=== PATIENT | female | born 1995 | race Caucasian/White ===

== ENCOUNTER 2017-08-12 19:22 | Inpatient (IN) | payer MEDICAID ==
[2017-08-12 23:34] VITALS: BMI 42.9
[2017-08-12] MEDS ORDERED: Nalbuphine 20 mg/ml Inj (1 ml) IVP PRN (23:36)
[2017-08-13 00:51] LABS: BASO % 0.3 % (0.0-2.0); EOS # 0.1 K/uL (0.0-0.7); EOS % 0.4 % (0.0-4.0); HEMATOCRIT 35.8 % (34.0-47.0); LYMPH # 1.8 K/uL (1.0-4.3); LYMPH % 13.3 % (20.0-40.0); MEAN CELL VOLUME 78.4 fl (81.0-99.0); MEAN CORPUSCULAR HEMOGLOBIN 25.7 pg (27.0-31.0); MEAN CORPUSCULAR HGB CONC 32.7 g/dL (33.0-37.0); MEAN PLATELET VOLUME 8.4 fl (7.2-11.7); MONO # 0.6 K/uL (0.0-0.8); MONO % 4.6 % (0.0-10.0); NEUT # 10.8 K/uL (1.8-7.0); NEUT % 81.4 % (50.0-75.0); NRBC % 0.1 % (0.0-0.0); RED CELL DISTRIBUTION WIDTH 14.5 % (11.5-14.5); WHITE BLOOD COUNT 13.2 K/uL (4.8-10.8)
[2017-08-13 01:16] VITALS: O2SAT 100
[2017-08-13] MEDS: Lactated Ringer's 1,000 ML IV SCH ×4 (01:30→07:30)
[2017-08-13] MEDS ORDERED: Oxytocin 30 UNITS in Sodium Chloride 0.9% 500 ML IV ONE (01:35)
[2017-08-13] MEDS ORDERED: Bupivacaine HCl 0.25% PF (10 ml) Inj ONE ×2 (02:20→06:24)
[2017-08-13] MEDS ORDERED: Lidocaine 2% Inj (20ml) ONE (02:47)
[2017-08-13] MEDS ORDERED: Nalbuphine 20 mg/ml Inj (1 ml) IVP PRN (03:43)
[2017-08-13] MEDS ORDERED: Lidocaine 1% Inj (20ml) ONE (07:32)
--- NOTE | 2017-08-13 07:35 | CP.PCM.PN ---
Subjective - Date & Time of Evaluation Date of Evaluation: 08/13/17 Time of Evaluation: 06:30 - Subjective Subjective: Documentation of incident After epidural was placed after multiple attempts, I asked a nurse to get me an epidural bag for infusion ([facility] ran out of epidural bags today so had to get it physically from pharmacy). I was handed a mixture bag and started the the epidural infusion. However, about 1.5 hours later, I was called by nurse to give a top off. I went into the room and saw that the patient was in a lot of discomfort. I checked to make sure the epidural catheter was still in place and it was. However, when I checked the epidural bag, I noticed it was a pitocin mixture. I stopped the infusion and switched it for an bupiv/fentanyl mixture. Objective - Vital Signs/Intake and Output Vital Signs (last 24 hours): Temp Pulse Resp BP Pulse Ox 98.6 F 90 18 125/69 100 08/13/17 01:14 08/13/17 01:14 08/13/17 01:14 08/13/17 01:14 08/13/17 01:14 - Medications Medications: Current Medications Lactated Ringer's (Lactated Ringer's) 1,000 mls @ 125 mls/hr IV .Q8H TIFFANY Last Admin: 08/13/17 04:45 Dose: 125 mls/hr Oxytocin (Pitocin 20 Units In Lr) 1,000 mls @ 125 mls/hr IV .Q8H TIFFANY PRN Reason: Protocol Nalbuphine HCl (Nubain) 10 mg IVP ONCE PRN PRN Reason: Pain, severe (8-10) Last Admin: 08/13/17 00:11 Dose: 10 mg Nalbuphine HCl (Nubain) 10 mg IVP ONCE PRN PRN Reason: Pain, severe (8-10) - Labs Labs: 08/13/17 00:10
--- NOTE | 2017-08-13 08:55 | OBHP ---
Datetime: 08/12/2017 23:39 IP Adm Impression: Postterm, intrauterine IP Admit Plan: Admit to unit; Initiate labor protocol Admit Comment, IP Provider: CC: CTX HPI: 22YO @ 40.6wks (by LMP RERE 08/06/17) presents to [facility] for ctx. Per pt, ctx started aroun d 5PM today and were initially every 15-20minutes apart and 5/10 in intensity. In the past 2 hrs the contracts have gotten closer together and are every 2mins apart and 8/10 in intensity. Endorses good FM, and CTX, no VB, no LOF. Pt scheduled for IOL in [facility] 08/13 but pt would like to have baby here in [facility]. Of note, pt had her initial care in the [facility]-came to [facility] when 34wks, 05/2017. : [facility] ObHx: primigrivida, no complications with per pt Gynhx: normal pap, denies STIs PMH: denies SurgH: denies SH: , no smoking, ETOH and illicit drug use FH: hx of DM and HTN in M/F Allergies: NKDA Meds: PNV PE Vitals: stable GEN: NAD, anxious and distress with ctx cardio: S1S2 no M/G/R Resp: vesicular breathing b/l Abdomen: Gravid, NT, BS+ Neuro: AAO x 3 Ext: no edema noted, NT FM: 145 with moderate variability- catagory I Cervx: 2cm/60/-1 bedside u/s: vertex presentation Assessment/Plan: 22YO @ 40.6wks IUP is being admitted to L_D for early labor. GBS neg, HIV neg, RPR neg, Hep B neg, GC neg. -admit pt to L_D -blood work -iv fluids -consult anesthesiology -nubain for pain -continue monitor -observe and continue to monitor labor progression Case discussed with attending, Dr. Monserrat Esteves, PGY I OB H addendum: Patient seen and examined by me with above assessment and plan. Pelvic Type - PN: Adequate Extremities - PN: Normal Abdomen - PN: Normal Back - PN: Not Done Breast - PN: Normal Lungs - PN: Normal Heart - PN: Normal Thyroid - PN: Not Done Neurologic - PN: Normal HEENT - PN: Normal General - PN: Normal FHR - Baseline A Provider: 150 EGA AdmitDate IP: 41.0 Vital Signs Provider: Reviewed; Within Normal Limits IP Chief Complaint: Uterine contractions NICHD Variability Prov Fetus A: Moderate 6-25bpm NICHD Accel Fetus A IP Provider: [id number] FHR Category Provider Fetus A: Category I Dilatation, Provider: 3 Effacement, Provider: 60 Station, Provider: -1 Genitourinary Exam: Normal DTRs - PN: Not Done
--- NOTE | 2017-08-13 09:13 | OBADHP ---
Datetime: 08/12/2017 23:39 Admit Comment, IP Provider: CC: CTX HPI: 22YO @ 40.6wks (by LMP RERE 08/06/17) presents to [facility] for ctx. Per pt, ctx started aroun d 5PM today and were initially every 15-20minutes apart and 5/10 in intensity. In the past 2 hrs the contracts have gotten closer together and are every 2mins apart and 8/10 in intensity. Endorses good FM, and CTX, no VB, no LOF. Pt scheduled for [place]OL in [facility] 08[place]13 but pt would like to have baby here in [facility]. Of note, pt had her initial care in the [facility]-came to [facility] when 34wks, 05/2017. : [facility] ObHx: primigrivida, no complications with per pt Gynhx: normal pap, denies STIs PMH: denies SurgH: denies SH: , no smoking, ETOH and illicit drug use FH: hx of DM and HTN in M/F Allergies: NKDA Meds: PNV PE Vitals: stable GEN: NAD, anxious and distress with ctx cardio: S1S2 no M/G/R Resp: vesicular breathing b/l Abdomen: Gravid, NT, BS+ Neuro: AAO x 3 Ext: no edema noted, NT FM: 145 with moderate variability- catagory I Cervx: 2cm/60/-1 bedside u/s: vertex presentation Assessment/Plan: 22YO @ 40.6wks IUP is being admitted to L_D for early labor. GBS neg, HIV neg, RPR neg, Hep B neg, GC neg. -admit pt to L_D -blood work -iv fluids -consult anesthesiology -nubain for pain -continue monitor -observe and continue to monitor labor progression Case discussed with attending, Dr. Monserrat Esteves, PGY I OB H addendum: Patient seen and examined by me with above assessment and plan. Pelvic Type - PN: Adequate Extremities - PN: Normal Abdomen - PN: Normal Back - PN: Not Done Breast - PN: Normal Lungs - PN: Normal Heart - PN: Normal Thyroid - PN: Not Done Neurologic - PN: Normal HEENT - PN: Normal General - PN: Normal FHR - Baseline A Provider: 150 Vital Signs Provider: Reviewed; Within Normal Limits IP Chief Complaint: Uterine contractions NICHD Variability Prov Fetus A: Moderate 6-25bpm NICHD Accel Fetus A IP Provider: [id number] FHR Category Provider Fetus A: Category I Dilatation, Provider: 3 Effacement, Provider: 60 Station, Provider: -1 Genitourinary Exam: Normal DTRs - PN: Not Done EGA AdmitDate IP: 41.0 IP Adm Impression: Postterm, intrauterine IP Admit Plan: Admit to unit; Initiate labor protocol
--- NOTE | 2017-08-13 09:33 | OBDS ---
MATERNAL INFORMATION Other Maternal Complications: thick meconium fluid Provider Comments: called in as emergency because pt was fully dilated and pushing and attending communications agent doing other delivery and came in found pt and pushing not able to hold and in one uncon trollable push delivered a living baby boy appears term cried spontaneously aspirated with bulb sucti on 9/9 AF thick meconium stained Placenta and membranes delivered complete and intact with meco nium stained Vaginal-perineal laceration repaired as above No complications Tolerated procedure well Rectal done no defects. LABOR SUMMARY EDC: 08/06/2017 00:00 No. Babies in Womb: 0 LABOR INFORMATION Reason for Induction: Postterm Steroids Given: None Reason Steroids Not Administered: Not Applicable VAGINAL DELIVERY Episiotomy: None Laceration Extension: Second Degree Laceration Type: Perineal; Vaginal Laceration Repair Note: laceration 2nd dg medial repaired with 2-0 chromic interrupted for deep and continuosly for vagina and perineum No other lacerations noted Tolerated procedure well no complicati ons. Sponge Count Correct: Yes Sharps Count Correct: Yes Count Comment: count correct and confirmed by RN CSECTION DELIVERY Primary Indication: N/A Secondary Indication: N/A CSection Incision: N/A
[2017-08-13] MEDS ORDERED: Oxycodone/Acetaminophen 5/325 mg Tab PO PRN (09:56)
[2017-08-13] MEDS: Oxycodone/Acetaminophen 5/325 mg Tab PO PRN ×2 (11:15→16:30)
[2017-08-13] MEDS: Benzocaine/Menthol SPRAY TOP PRN (16:26)
--- NOTE | 2017-08-13 18:27 | CP.PCM.PN ---
Subjective - Date & Time of Evaluation Date of Evaluation: 08/13/17 Time of Evaluation: 18:20 - Subjective Subjective: I went to see the patient and she said she was doing well. She was feeding her baby and appeared to be in a good mood. She stated she was ambulating well, no pain or weakness. She also had no issues going to the bathroom. No apparent complications from the epidural. Objective - Vital Signs/Intake and Output Vital Signs (last 24 hours): Temp Pulse Resp BP Pulse Ox 98.6 F 90 18 125/69 100 08/13/17 01:14 08/13/17 01:14 08/13/17 01:14 08/13/17 01:14 08/13/17 01:14 - Medications Medications: Current Medications Benzocaine/Menthol (Dermoplast) 1 sprays TOP PRN PRN PRN Reason: Perineal Discomfort Last Admin: 08/13/17 16:26 Dose: 1 sprays Docusate Sodium (Colace) 100 mg PO BID [facility] Last Admin: 08/13/17 16:26 Dose: 100 mg Lactated Ringer's (Lactated Ringer's) 1,000 mls @ 125 mls/hr IV .Q8H [facility] Last Admin: 08/13/17 07:30 Dose: 125 mls/hr Oxytocin (Pitocin 20 Units In Lr) 1,000 mls @ 125 mls/hr IV .Q8H TIFFANY PRN Reason: Protocol Last Admin: 08/13/17 09:55 Dose: 125 mls/hr Ibuprofen (Motrin Tab) 600 mg PO Q6 PRN PRN Reason: Pain, Mild (1-3) Multivitamins/Minerals (Therapeutic-M Tab) 1 tab PO DAILY [facility] Nalbuphine HCl (Nubain) 10 mg IVP ONCE PRN PRN Reason: Pain, severe (8-10) Last Admin: 08/13/17 00:11 Dose: 10 mg Nalbuphine HCl (Nubain) 10 mg IVP ONCE PRN PRN Reason: Pain, severe (8-10) Oxycodone/Acetaminophen (Percocet 5/325 Mg Tab) 1 tab PO Q4 PRN PRN Reason: Pain, moderate (4-7) Stop: 08/16/17 09:57 Last Admin: 08/13/17 16:30 Dose: 1 tab Oxycodone/Acetaminophen (Percocet 5/325 Mg Tab) 2 tab PO Q4 PRN PRN Reason: Pain, severe (8-10) Stop: 08/16/17 09:57 Sennosides (Senokot Tab) 17.2 mg PO HS TIFFANY - Labs Labs: 08/13/17 00:10
[2017-08-14 07:54] LABS: HEMATOCRIT 29.3 % (34.0-47.0); MEAN CELL VOLUME 79.1 fl (81.0-99.0); MEAN CORPUSCULAR HGB CONC 32.9 g/dL (33.0-37.0); RED CELL DISTRIBUTION WIDTH 14.1 % (11.5-14.5); WHITE BLOOD COUNT 12.2 K/uL (4.8-10.8)
[2017-08-14] MEDS: Multivitamin With Minerals Tab PO SCH (09:17)
[2017-08-14] MEDS: Benzocaine/Menthol SPRAY TOP PRN (11:00)
--- NOTE | 2017-08-14 11:20 | OBPPN ---
Datetime: 08/14/2017 06:54 PP Pain Prov: Within normal limits PP Nausea Prov: Denies PP Flatus Prov: Yes PP BM Prov: No PP Breasts Prov: Normal PP Heart Prov: Normal PP Lungs Prov: Normal PP Abdomen/Uterus Prov: Normal PP Lochia Prov: Normal PP Vulva/Perineum Prov: Normal PP CVA Tenderness Prov: Not Done PP Extremities Prov: Normal PP C/S Incision Prov: Not Applicable PP Progress Prov: Normal PP Impression Prov: Normal progression PP Plan Prov: Continue present management PP Progress Note Prov: S: pt seen and examined bedside this AM. PPD1, s/p NVD. No acute overnight ev ents. Pt states that she had more bleeding yesterday after she got up to go to the bathroom, but othe rwise her bleeding has decreased. Endorses moderate pelvic pain, but significantly better with meds. Pt is seen ambulating in the room, just feels tired because baby was awake entire night. B and B feed ing baby, mainly breast. Tolerating PO diet and urinating w/o difficulties. +/- gas, BM. Denies fever , chills, headache, chest pain, dyspnea, palpitations, n/v/d/c and remains afebrile. Pt would like ba by to be circumcised. O: VS stable GEN: NAD Cardio: S1S2 no M/G/R Resp: vesicular breathing b/l Abdomen: mild tenderness to palpation. Fundus below the umbilicus and firm. BS+ Neuro: AAO x 3 Ext: no edema noted, no calf tenderness Assessment/Plan: 22 YO delivered @ 41wks to a baby boy via NVD on 08/13/17. Doing well PPD1. OOB with caution SCD's for DVT prophylaxis, ambulating Ibuprofen and Percocet 5/325mg 1-2 tablets po q6 for mod/sev pain Encourage and ambulation Senakot 17.2mg PO qHS Will continue PP management Janet Esteves, PGY I obh addendum: pt seen _ examined by me. agree with above assessment and plan. pt desires circumcision for son. she understands is an elecitve procedure, not medically indicated. Risks d/w included possible future foreskin revision with urologist. Informed consent signed and in chart. Vital Signs Provider PP: Reviewed; Within Normal Limits
[2017-08-15] MEDS: Multivitamin With Minerals Tab PO SCH (08:39)
--- NOTE | 2017-08-15 08:51 | OBPPN ---
Datetime: 08/15/2017 08:17 PP Pain Prov: Within normal limits PP Nausea Prov: Denies PP Flatus Prov: Yes PP BM Prov: Yes PP Heart Prov: Normal PP Lungs Prov: Normal PP Abdomen/Uterus Prov: Normal PP Lochia Prov: Normal PP Extremities Prov: Normal PP Impression Prov: Normal progression PP Plan Prov: Discharge PP Progress Note Prov: 22 yo , s/p NVD, PPD 2, seen and examined at bedside today. No acute even ts overnight. Reports mild-moderate pelvic pain, well controlled with medication. She is OOB and ambu lating without dizziness. Tolerating regular diet, has passed gas, has had BM. Feeding baby via breas t and bottle. Had some elevated blood pressures, but systolic BP remained below 140 over the past 24 hrs. Denies headaches, epigastric pain, RUQ pain, spots in vision. Denies fevers, chills, chest pain , shortness of breath, nausea, leg/calf pain/swelling. PE: VS stable, systolic BP remained under 140 since 8 am yesterday. Gen: awake, alert, no acute distress Cardio: S1S2 present, RRR Resp: clear to auscultation bilaterally, normal effort Abdomen: +BS, soft, appropriate tenderness to palpation, fundus is firm below umbilicus Ext: no edema noted, no calf tenderness. Assessment/Plan: 22 yo s/p NVD at 41 weeks on 08/13/17. Doing well on PPD2. Continue present management until discharge later today. -Carissa Silverman PGY1. OB Hospitalist Addendum: Pt seen and examined by me. Agree w/ above. PPD 2 s/p , doing well, breast and bottle feeding. Discharge home today. (ES)
[2017-08-15 19:23] VITALS: BP 139/78; PULSE 93; RESP 20; TEMP 98
== END 2017-08-15 15:05 | disposition home or self-care (01) | DRG 373 ==
LOC: H.EROB2 19:22 → H.L&D 23:34 → H.OB/GYN 08-13 13:30
PROVIDERS: ADMIT Obstetrics & Gynecology; ATTEND Obstetrics & Gynecology
PROC: 4A1HXCZ Monitoring of Products of Conception, Cardiac Rate, External Approach (ICD-10-PCS; 2017-08-12)
PROC: 10E0XZZ Delivery of Products of Conception, External Approach (ICD-10-PCS; principal; 2017-08-13)
PROC: 0KQM0ZZ Repair Perineum Muscle, Open Approach (ICD-10-PCS; 2017-08-13)
DX: O48.0 Post-term pregnancy (principal); O77.0 Labor and delivery complicated by meconium in amniotic fluid; O70.1 Second degree perineal laceration during delivery; Z3A.40 40 weeks gestation of pregnancy; Z37.0 Single live birth